=== PATIENT | female | born 1970 | race Two or more races ===

== ENCOUNTER 2020-06-01 10:49 | Emergency (ER) | payer OTHER ==
[~2020-06-01] VITALS: Ht 167.6 cm; Wt 72.6 kg
== END 2020-06-01 14:58 | disposition home or self-care (01) ==
LOC: ER 10:49
DX: N93.8 Other specified abnormal uterine and vaginal bleeding (principal)

== ENCOUNTER 2020-09-10 08:45 | Inpatient (IN) | payer OTHER ==
[~2020-09-10] VITALS: Ht 167.6 cm; Wt 72.6 kg
== END 2020-09-19 08:39 | disposition home or self-care (01) | DRG 743 ==
LOC: SURH 09-16 08:00 → O/R 09-16 09:47 → OB/GYN 09-16 09:47
PROVIDERS: ADMIT Obstetrics & Gynecology; ATTEND Obstetrics & Gynecology
PROC: 0UB70ZZ Excision of Bilateral Fallopian Tubes, Open Approach (ICD-10-PCS; 2020-09-16)
PROC: 0UT90ZZ Resection of Uterus, Open Approach (ICD-10-PCS; principal; 2020-09-16 08:00)
DX: D25.0 Submucous leiomyoma of uterus (principal); D25.1 Intramural leiomyoma of uterus; D25.2 Subserosal leiomyoma of uterus; N80.0 Endometriosis of uterus; N72 Inflammatory disease of cervix uteri; N70.11 Chronic salpingitis; D28.2 Benign neoplasm of uterine tubes and ligaments